=== PATIENT | male | born 1980 | race Caucasian/White ===

== ENCOUNTER 2020-05-16 12:50 | Emergency (ER) | payer BC ==
--- NOTE | 2020-05-16 13:10 | ED.PDOC ---
History of Present Illness - General Time Seen by Provider: 05/16/20 13:09 Source: patient - History of Present Illness Initial Comments: 40-year-old male with past medical history of chronic back pain who presents with chief complaint of low back pain. Patient reports he has a long history of sciatica which flares up from time to time. Symptoms began approximately 15 years ago after a lifting injury with acute pain to the low back. He has never sought medical evaluation for his back pain. He reports he took a long road trip last month which typically worsens his back pain. He reports onset of pain a few days after he got back which was about 3 weeks ago. The pain is further worsened in the past 1 week and especially in the past 48 hours. Reports a constant dull aching pain across the entire lower back, radiates into the bilateral buttocks and down the backs of both legs all the way to his toes, pain is minimal at rest but worsens sharply with range of motion of the back. The pain has become so severe that he basically has in sitting in a lawn chair for the past 2 days at home unable to walk or move. He has been taking ibuprofen 600 mg every 6 hours with little relief. Additionally reports low-grade fevers for the past 3 days. He also reports chronic issues with constipation. Denies any urinary symptoms, saddle anesthesia, other systemic symptoms. PCP is Dr. Marcos. Allergies/Adverse Reactions: Allergies NO KNOWN ALLERGY Allergy (Verified 05/16/20 13:19) Home Medications: Ambulatory Orders Cyclobenzaprine HCl [Flexeril] 10 mg PO Q8H PRN 30 Days #30 tab 05/16/20 Prednisone 60 mg PO DAILY 5 Days #15 tab 05/16/20 Tramadol HCl [Tramadol Hydrochloride] 50 mg PO Q6HR PRN 10 Days #12 tab 05/16/20 Review of Systems - Review of Systems Review of Systems: 05/16/20 14:43 as per HPI All other Systems: Reviewed and Negative Family Medical History - Family History Mother Family History: Unknown Living Status: Unknown Physical Exam - Physical Exam General Appearance: Alert, No apparent distress, Restless Eye Exam: bilateral normal Ears, Nose, Throat: hearing grossly normal, normal ENT inspection, normal pharynx Neck: non-tender, full range of motion, supple, normal inspection Respiratory: chest non-tender, lungs clear, normal breath sounds, no respiratory distress, no accessory muscle use Cardiovascular/Chest: normal peripheral pulses, regular rate, rhythm, no edema, no gallop, no JVD, no murmur Peripheral Pulses: radial,right: 2+, radial,left: 2+ Gastrointestinal/Abdominal: normal bowel sounds, non tender, soft, no organomegaly Back Exam: normal inspection, no CVA tenderness, no vertebral tenderness, decreased range of motion, other - Grossly the back appears normal upon ins pection, there is no midline tenderness to palpation or step-offs. Range of motion is moderately limited in all directions due to pain. 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 Consider also osteoarthritis of the back, neural foraminal stenosis, spinal stenosis, herniated lumbar disc, bony metastatic disease, other -Obtain CT imaging of the lumbar spine -For pain, will try Decadron 8 mg IM, Toradol 60 mg IM, Flexeril 10 mg p.o. 05/16/20 16:22 -Patient remains stable. He reports his pain is markedly improved with the ED treatment. Lab work is largely unremarkable. CT imaging of the lumbar spine reveals evidence of sacroiliitis. There is minimal lumbar vertebral and intervertebral disc pathology present. Coincidentally findings of colitis and enlarged lymph nodes were noted in the pelvis. This is likely reactive lymphadenopathy from acute colitis. Advised the patient he will need to follow- up with his PCP for further evaluation. -Discussed all findings with patient as well as diagnosis of acute sacroiliitis. Suspect also acute sciatica pain. Will prescribe prednisone 60 mg daily for 5 days. Also will give prescription of as needed Flexeril and tramadol. -Discharged home in good condition, return warnings discussed at length Seamus Temple MD Billing #[id number] Laboratory Results - last 24 hr 05/16/20 05/16/20 05/16/20 13:30 14:57 14:57 WBC 8.2 RBC 4.67 L Hgb 13.4 L Hct 39.0 L MCV 83.6 MCH 28.7 MCHC 34.3 RDW 12.7 Plt Count 323 MPV 7.4 Absolute Neuts (auto) 6.20 Absolute Lymphs (auto) 1.00 Absolute Monos (auto) 0.80 Absolute Eos (auto) 0.10 Absolute Basos (auto) 0.00 Neutrophils % 75.5 Lymphocytes % 12.2 L Monocytes % 10.2 H Eosinophils % 1.8 Basophils % 0.3 Sodium 138 Potassium 4.2 Chloride 98 L Carbon Dioxide 28 Anion Gap 16.2 BUN 9 Creatinine 0.87 BUN/Creatinine Ratio 10.3 Random Glucose 105 Serum Osmolality 274.7 L Calcium 9.4 Total Bilirubin 0.8 Direct Bilirubin 0.1 Indirect Bilirubin 0.7 AST 15 ALT 18 Alkaline Phosphatase 66 Serum Total Protein 7.8 Albumin 3.9 Urine Color Yellow Urine Appearance Clear Urine pH 6.0 Ur Specific Drew 1.010 Urine Protein Negative Urine Glucose (UA) Negative Urine Ketones Negative Urine Blood Trace-intact H Urine Nitrite Negative Urine Bilirubin Negative Urine Urobilinogen 0.2 Ur Leukocyte Esterase Negative Urine RBC 0-1 Urine WBC 0-1 Ur Epithelial Cells 0-1 Amorphous Sediment 1+ Urine Bacteria 0 Departure - Departure Clinical Impression: Sacroiliitis, Colitis Sciatica Qualifiers: Laterality: bilateral Qualified Code(s): M54.31 - Sciatica, right side; M54.32 - Sciatica, left side Time of Disposition: 16:17 Disposition: Discharge to Home or Self Care Condition: Good Instructions: Low Back Pain (DC), Sacroiliac Joint Pain (DC) Diet: other - high fiber diet Activity: increase activity as tolerated Referrals: Dale Perales MD [Primary Care Provider] - 1-2 Weeks Prescriptions: Tramadol HCl [Tramadol Hydrochloride] 50 mg PO Q6HR PRN 10 Days #12 tab PRN Reason: Pain Cyclobenzaprine HCl [Flexeril] 10 mg PO Q8H PRN 30 Days #30 tab PRN Reason: Muscle Spasms Prednisone 60 mg PO DAILY 5 Days #15 tab Home Medications: Ambulatory Orders Cyclobenzaprine HCl [Flexeril] 10 mg PO Q8H PRN 30 Days #30 tab 05/16/20 Prednisone 60 mg PO DAILY 5 Days #15 tab 10/19/20 Tramadol HCl [Tramadol Hydrochloride] 50 mg PO Q6HR PRN 10 Days #12 tab 05/16/20 Additional Instructions: Continue to take [id number] medications as needed for pain such as ibuprofen 600 mg every 6 hours as needed and Tylenol 650 mg every 6 hours as needed. You may take the Flexeril as needed for muscle spasms and tramadol as needed for breakthrough pain. Do not drive or operate heavy machinery while t aking these medications. Take the prednisone as directed to help limit inflammation. You were noted during this ED visit to have inflammation at the sacroiliac joint which may be causing/contributing to your pain. You are also noted to have evidence of inflammation of the wall of the colon concerning for colitis. There were some enlarged lymph nodes coincidentally noted on the CT scan which may be reactive in nature from the colitis. These things will need to be followed up by your primary care physician to ensure that they are improving and not due to a more serious underlying issue such as inflammatory bowel disease or cancer. ED if you develop concerning symptoms such as poorly controlled pain, intractable nausea and vomiting, blood in the vomit or stool, worsening abdominal pain with fevers, etc.
[2020-05-16 13:22] VITALS: TEMP 98.8
[2020-05-16] MEDS ORDERED: CYCLOBENZAPRINE HCL 10 MG TAB PO ONE (14:40)
[2020-05-16] MEDS ORDERED: KETOROLAC TROMETHAMINE INJ 60 MG/2 ML VIAL IM ONE (14:40)
[2020-05-16] MEDS ORDERED: DEXAMETHASONE INJ 10 MG/ML VIAL IM ONE (14:40)
--- NOTE | 2020-05-16 15:29 | CT ---
EXAM DESCRIPTION: Lumbar Spine CLINICAL HISTORY: acute on chronic lower back pain, +BL sciatica COMPARISON: None TECHNIQUE: Non contrast transaxial CT images of the lumbar spine are obtained with coronal and sagittal reconstructed images. This exam was performed according to our departmental dose-optimization program, which includes automated exposure control, adjustment of the mA and/or kV according to patient size and/or use of iterative reconstruction technique . FINDINGS: GENERAL Lumbar vertebral body heights are maintained. Normal alignment of the lumbar spine. Visualized intra-abdominal and retroperitoneal structures show no acute findings. Poor distention of the sigmoid colon is seen with mild adjacent fat stranding. Multiple less than 1 cm lymph nodes in the mesentery of the lower abdomen to pelvis are seen. Largest lymph node in the left iliac chain region measures 14 mm. Several perirectal lymph nodes are seen left greater than right measuring maximum 10 mm. Mild chronic changes around the sacroiliac joints bilaterally. L1-2 No significant findings. L2-3 No significant findings. L3-4 No significant findings. L4-5 Mild diffuse disc space narrowing. Mild 2 mm broad-based disc bulge. Mild facet hypertrophic and degenerative changes. Mild left greater than right lateral recess encroachment is seen with minimal spinal canal stenosis. No foraminal encroachment. L5-S1 Mild diffuse disc space narrowing. Posterior circumferential ridging disc osteophyte complex measures 2 mm. No spinal canal stenosis. Minimal lateral recess encroachment is seen. Mild right foraminal encroachment. IMPRESSION: Mild disc degenerative changes and facet arthropathy of the lumbar spine are seen. Mild right foraminal encroachment is seen at L5-S1. Bilateral sacroiliitis is seen. Differential wall thickening of the sigmoid colon is identified with mild adjacent fat stranding that could represent nonspecific infectious or inflammatory colitis. Enlarged lymph nodes in the perirectal, lower pelvis, and iliac chain region could represent reactive lymphadenopathy associated with colitis. Lymphatic spread of neoplastic process is not excluded. Electronically signed by: Harinder Snell MD 05/16/2020 3:28 PM CDT
[2020-05-16 16:33] VITALS: BP 122/71; O2SAT 97
== END 2020-05-16 16:32 | disposition home or self-care (01) ==
LOC: ER 12:50
DX: M54.31 Sciatica, right side (principal); M54.32 Sciatica, left side; M46.1 Sacroiliitis, not elsewhere classified; K52.9 Noninfective gastroenteritis and colitis, unspecified
CPT/HCPCS: 36415; 72131; 80048; 80076; 81001; 85025; J1100; J1885